=== PATIENT | male | born 1970 | race Two or more races ===

== ENCOUNTER 2019-03-30 16:42 | Emergency (ER) | payer OTHER ==
[~2019-03-30] VITALS: Ht 177.8 cm; Wt 79.4 kg
[2019-03-30 17:58] VITALS: BP 122/78
[2019-03-30] MEDS ORDERED: methylPREDNISolone SOD SUCC 125 MG/2 ML VL IM ONE (19:15)
[2019-03-30] MEDS ORDERED: diphenhdrAMINE HCL 50 MG/1 ML VL IM ONE (19:15)
[2019-03-30] MEDS ORDERED: ALBUTEROL SULF 2.5 MG/0.5ML(0.5%) NEB SOLN NEB ONE (19:30)
[2019-03-30] MEDS ORDERED: IPRATROPIUM BROM 0.5 MG/2.5ML INH SOL NEB ONE (19:30)
== END 2019-03-30 20:06 | disposition home or self-care (01) ==
LOC: ER 16:42
DX: R06.02 Shortness of breath (principal); T78.49XA Other allergy, initial encounter
CPT/HCPCS: 71046; 94640; 96372; 99283; J1200; J2930; J7611; J7644

== ENCOUNTER 2023-06-01 15:04 | Inpatient (IN) | payer OTHER ==
[~2023-06-01] VITALS: Ht 177.8 cm; Wt 74.8 kg
[2023-06-01 16:06] LABS: Basophils # (auto) 0 10 ^3/uL (0-0.2); Basophils % (auto) 0.3 % (0.0-2.0); Eosinophils # (auto) 0 10 ^3/uL (0-0.8); Eosinophils % (auto) 0.1 % (0.0-7.0); Hematocrit 42.3 % (41.0-53.0); Hemoglobin 14.4 g/dL (13.5-17.5); Lymphocytes # (auto) 1.9 10 ^3/uL (0.4-5.4); Lymphocytes % (auto) 11.6 % (10.0-50.0); Mean Corpuscular Hemoglobin 30.9 pg (28.0-32.0); Mean Corpuscular Hgb Conc. 34.1 g/dL (32.0-36.0); Mean Corpuscular Volume 90.6 fL (80.0-100.0); Monocytes # (auto) 1.3 10 ^3/uL (0-1.3); Monocytes % (auto) 8.1 % (0.0-12.0); Neutrophils # (auto) 13.2 10 ^3/uL (1.6-8.6); Neutrophils % (auto) 79.9 % (37.0-80.0); Red Blood Cells 4.67 10^6/uL (4.5-5.90); Red Cell Distribution Width 13.1 % (11.8-14.3); White Blood Cell 16.5 10^3/uL (4.4-10.8)
[2023-06-01 16:19] LABS: Urine Bacteria NONE SEEN /hpf (None Seen); Urine Blood Negative /uL (Negative); Urine Clarity Clear (Clear); Urine Color Colorless (Yellow); Urine Protein, UAD Negative (Negative); Urine Specific Gravity 1.009 (1.001-1.035); Urine Urobilinogen Normal (Negative); Urine WBC 7 /hpf (0 - 3)
[2023-06-01 16:27] LABS: Alanine Aminotransferase 27 U/L (7-40); Albumin 4.2 g/dL (3.2-4.8); Alkaline Phosphatase 84 U/L (46-116); Anion Gap 6 (5-15); Aspartate Aminotransferase 29 U/L (13-40); BUN/Creatinine Ratio 8.7 (10.0-20.0); Bilirubin, Total 0.6 mg/dL (0.2-1.0); Blood Urea Nitrogen 8 mg/dL (9-23); Calcium 8.8 mg/dL (8.5-10.1); Carbon Dioxide 27 mmol/L (20-30); Chloride 106 mmol/L (98-107); Glucose 121 mg/dL (74-106); Potassium 3.9 mmol/L (3.5-5.1); Sodium 139 mmol/L (136-145); Total Protein 6.7 g/dL (5.7-8.2)
[2023-06-01] MEDS ORDERED: PIPERACILLIN-TAZOB 3.375GM 100 ML IV ONE (16:45)
[2023-06-01] MEDS ORDERED: SODIUM CHLORIDE 0.9% 1,000 ML IV ONE (16:45)
[2023-06-01] MEDS ORDERED: MORPHINE SULFATE INJ 2 MG/ml SYRG IV PRN (19:45)
[2023-06-01] MEDS ORDERED: hydrALAZINE HCL 10 MG TAB PO PRN (19:45)
[2023-06-01] MEDS ORDERED: ACETAMINOPHEN 325 MG TAB PO PRN (19:45)
[2023-06-01] MEDS ORDERED: ONDANSETRON HCL 4 MG/2 ML VIAL IV PRN (19:45)
[2023-06-01] MEDS ORDERED: ACETAMINOPHEN 500 MG TAB PO ONE (20:00)
[2023-06-01] MEDS: ENOXAPARIN SOD 40 MG/0.4 ML SYRINGE SC SCH (20:15)
[2023-06-02 02:13] VITALS: PULSE 91; RESP 18; O2SAT 97
[2023-06-02] MEDS: HYDROcodone-ACET 5/325MG TAB PO PRN ×2 (02:13→10:00)
[2023-06-02] MEDS: PIPERACILLIN-TAZOB 3.375GM 100 ML IV SCH ×2 (04:15→12:29)
[2023-06-02] MEDS: ENOXAPARIN SOD 40 MG/0.4 ML SYRINGE SC SCH (10:07)
[2023-06-02] MEDS ORDERED: LEVO175T4 PO (10:30)
[2023-06-02 13:00] VITALS: BP 119/54; PULSE 98; RESP 17; TEMP 99.4; O2SAT 96
[2023-06-02] MEDS ORDERED: PIPERACILLIN-TAZOB 3.375GM 100 ML IV SCH (14:00)
[2023-06-02] MEDS ORDERED: HYDROcodone-ACET 10/325MG TAB PO PRN (15:00)
[2023-06-02] MEDS ORDERED: HYDROcodone-ACET 5/325MG TAB PO PRN (16:15)
[2023-06-02 16:45] VITALS: PULSE 98; RESP 18; O2SAT 93
[2023-06-02] MEDS ORDERED: levoFLOXacin 500MG 100 ML IV ONE (16:45)
[2023-06-02] MEDS: HYDROmorphone HCL 2 MG/ML VL/or syr IV PRN ×2 (16:49→23:14)
[2023-06-02 17:00] VITALS: BP 109/75; PULSE 102; RESP 18; TEMP 99.7; O2SAT 93
[2023-06-02 20:00] VITALS: PULSE 85; RESP 18; O2SAT 97
[2023-06-02] MEDS: DOCUSATE SOD 100 MG CAP PO SCH (20:18)
[2023-06-02 21:46] VITALS: BP 107/65; PULSE 88; RESP 16; TEMP 100; O2SAT 94
[2023-06-03] VITALS (8 sets, daily range): BP systolic 97–108; BP diastolic 57–76; PULSE 64–85; RESP 15–20; TEMP 97.8–99.3; O2SAT 95–97
[2023-06-03 06:58] LABS: Basophils # (auto) 0 10 ^3/uL (0-0.2); Basophils % (auto) 0.2 % (0.0-2.0); Eosinophils # (auto) 0.1 10 ^3/uL (0-0.8); Eosinophils % (auto) 0.4 % (0.0-7.0); Hematocrit 40.2 % (41.0-53.0); Hemoglobin 13.6 g/dL (13.5-17.5); Lymphocytes # (auto) 2.1 10 ^3/uL (0.4-5.4); Lymphocytes % (auto) 15.5 % (10.0-50.0); Mean Corpuscular Hgb Conc. 33.7 g/dL (32.0-36.0); Mean Corpuscular Volume 91.9 fL (80.0-100.0); Monocytes # (auto) 1.6 10 ^3/uL (0-1.3); Monocytes % (auto) 12.1 % (0.0-12.0); Neutrophils # (auto) 9.5 10 ^3/uL (1.6-8.6); Neutrophils % (auto) 71.8 % (37.0-80.0); Nucleated Red Blood Cells % 0.1 %; Red Blood Cells 4.37 10^6/uL (4.5-5.90); Red Cell Distribution Width 13.1 % (11.8-14.3); White Blood Cell 13.2 10^3/uL (4.4-10.8)
[2023-06-03] MEDS: ENOXAPARIN SOD 40 MG/0.4 ML SYRINGE SC SCH (08:40)
[2023-06-03] MEDS: DOCUSATE SOD 100 MG CAP PO SCH (08:41)
[2023-06-03] MEDS: HYDROmorphone HCL 2 MG/ML VL/or syr IV PRN (08:53)
[2023-06-03] MEDS ORDERED: levoFLOXacin 500MG 100 ML IV SCH (10:00)
[2023-06-03] MEDS ORDERED: HYDR-4902 PO (12:19)
[2023-06-03] MEDS ORDERED: LEVO500T91 PO (12:19)
[2023-06-06 15:06] LABS: Chlamydia Trachomatis, NAA Negative (Negative); Neisseria gonorrhoeae, NAA Negative (Negative)
== END 2023-06-03 21:12 | disposition home or self-care (01) | DRG 728 ==
LOC: ER 15:04 → TELE 20:03 → TELE-EAST 06-02 09:40 → OBSVTOIN 06-02 14:22 → EAST 06-02 14:23
PROVIDERS: ADMIT Nurse Practitioner Family; ATTEND Hospitalist
DX: N45.1 Epididymitis (principal); N28.1 Cyst of kidney, acquired; E07.9 Disorder of thyroid, unspecified; N28.89 Other specified disorders of kidney and ureter; E78.5 Hyperlipidemia, unspecified; Z80.1 Family history of malignant neoplasm of trachea, bronchus and lung; Z80.42 Family history of malignant neoplasm of prostate; Z82.0 Family history of epilepsy and other diseases of the nervous system
CPT/HCPCS: 36415; 74176; 76775; 76870; 80053; 81001; 83605; 85025; 87040; 87086; 97163; 97530; 99291; G0378; J1956; J2543